=== PATIENT | male | born 2000 | race Caucasian/White ===

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

== ENCOUNTER 2023-01-24 15:55 | Emergency (ER) | payer MEDICAID ==
--- NOTE | 2023-01-24 16:56 | XRAY Report ---
PROCEDURE: Tib/Fib LT INDICATIONS: Trauma TECHNIQUE: 2 views of the tibia and fibula were acquired. COMPARISON: None. FINDINGS: Bones: No fractures or dislocations. No suspicious bony lesions. Soft tissues: No suspicious soft tissue calcifications or masses. IMPRESSION: No acute osseous amenities. If clinical symptoms persist, consider repeat examination or advanced kasandra ging such as CT or MRI. Reviewed by: Silvino Garvin MD on 01/24/2023 4:55 PM PDT Approved by: Silvino Garvin MD on 01/24/2023 4:55 PM PDT Station ID: [id number]
[2023-01-24] MEDS ORDERED: TETANUS/DIPHTHERIA/PERTUSSIS 0.5 ML SYRINGE IM ONE (16:59)
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
[2023-01-24 18:02] VITALS: BP 138/78
== END 2023-01-24 18:02 | disposition home or self-care (01) ==
LOC: ED 15:55
DX: S81.842A Puncture wound with foreign body, left lower leg, initial encounter (principal); X58.XXXA Exposure to other specified factors, initial encounter; Z23 Encounter for immunization; Z71.85 Encounter for immunization safety counseling
CPT/HCPCS: 10120; 90471; 99283

== ENCOUNTER 2023-02-04 16:33 | Emergency (ER) | payer MEDICAID ==
[2023-02-04 16:45] VITALS: BP 152/69
--- NOTE | 2023-02-04 17:04 | ED Physician Documentation ---
PD HPI WOUND RECHECK - Stated complaint Stated Complaint: REMOVE STITCHES - Chief complaint Chief Complaint: General - Histroy obtained from History obtained from: Patient - History of Present Illness Location: Left Lower Extremity (calf area) Timing - onset: How many days ago (10) Associated symptoms: No: Fever, Redness, Swelling, Drainage Recently seen: Emergency Dept (seen for leg laceration 10 days ago and it is healing well. Here for suture removal.) Review of Systems Constitutional: denies: Fever, Chills Neurologic: denies: Focal weakness, Numbness PD PAST MEDICAL HISTORY - Past Medical History Past Medical History: Yes Cardiovascular: None Respiratory: None Neuro: None Endocrine/Autoimmune: None Psych: ADD/ADHD - Past Surgical History Past Surgical History: No - Allergies Allergies/Adverse Reactions: Allergies Allergy/AdvReac Type Severity Reaction Status Date / Time amoxicillin Allergy Unknown Verified 02/04/23 16:45 - Social History Does the pt smoke?: No Smoking Status: Never smoker Does the pt drink ETOH?: No Does the pt have substance abuse?: No - Immunizations Immunizations are current?: Yes - POLST Patient has POLST: No PD ED PE NORMAL - Vitals Vital signs reviewed: Yes - General General: Alert and oriented X 3, No acute distress, Well developed/nourished - Extremities Extremities: Other (left calf with healing laceration without signs of infection. Sutures intact.) Results - Vitals Vitals: Vital Signs - 24 hr 02/04/23 16:44 Temperature 37 C Heart Rate 72 Respiratory 14 Rate Blood Pressure 152/69 H O2 Saturation 97 Oxygen O2 Source Room air Procedures - Suture/staple Removal (location) - Minor left calf Suture/staple removal: # sutures (3), No complications PD Medical Decision Making - ED course Complexity details: considered differential (healing wound. No signs of infection. Sutures removed with scalpel and forceps. Steri strips applied to cover it. ), d/w patient Departure - Departure Disposition: 01 Home, Self Care Clinical Impression: Visit for suture removal Condition: Stable Record reviewed to determine appropriate education?: Yes Instructions: ED Wound Check Sutr Remove No Infec Comments: Your wound appears good without any signs of infection. The sutures came out without any problems. I did place some Steri-Strips on there to just cover it as the wound closes over still. Otherwise regular activity showering etc. Discharge Date/Time: 02/04/23 17:40
== END 2023-02-04 17:40 | disposition home or self-care (01) ==
LOC: ED 16:33
DX: Z48.02 Encounter for removal of sutures (principal); S81.812D Laceration without foreign body, left lower leg, subsequent encounter; X58.XXXD Exposure to other specified factors, subsequent encounter
CPT/HCPCS: 99281; 99282

== ENCOUNTER 2023-07-08 15:26 | Outpatient (CLI) | payer MEDICAID ==
[2023-07-11 18:08] LABS: CHLAMYDIA TRACHOMATIS DNA NEGATIVE (NEGATIVE); NEISSERIA GONORRHOEAE DNA NEGATIVE (NEGATIVE); TRICHOMONAS VAGINALIS DNA NEGATIVE (NEGATIVE)
== END 2023-07-08 23:59 | disposition home or self-care (01) ==
LOC: LAB.N 15:26
PROVIDERS: ATTEND Nurse Practitioner Acute Care
DX: Z11.3 Encounter for screening for infections with a predominantly sexual mode of transmission (principal)
CPT/HCPCS: 87491; 87591; 87661

== ENCOUNTER 2024-04-19 11:45 | Emergency (ER) | payer MEDICAID, OTHER ==
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
[2024-04-19 12:06] VITALS: BP 152/90; O2SAT 99
[2024-04-19] MEDS ORDERED: LIDOCAINE 1%-EPI 1:100000 10 ML MDV SUBQ STA (12:17)
[2024-04-19] MEDS: LIDOCAINE 1%-EPI 1:100000 20 ML MDV SUBQ STA (12:27)
--- NOTE | 2024-04-19 13:04 | XRAY Report ---
PROCEDURE: Hand 3+V LT INDICATIONS: hand inj TECHNIQUE: 3 views of the hand(s) acquired. COMPARISON: None. FINDINGS: Bones: Fracture of the distal neck of the fifth metacarpal. No other fractures or dislocations. Ther e is slight angulation. No suspicious bony lesions. Soft tissues: No suspicious soft tissue calcifications or masses. IMPRESSION: Boxer's fracture, fifth metacarpal. Reviewed by: Austin Marshall MD on 04/19/2024 1:03 PM PDT Approved by: Austin Marshall MD on 04/19/2024 1:03 PM PDT Station ID: [id number]
== END 2024-04-19 12:56 | disposition home or self-care (01) ==
LOC: ED 11:45
DX: S62.337A Displaced fracture of neck of fifth metacarpal bone, left hand, initial encounter for closed fracture (principal); W22.8XXA Striking against or struck by other objects, initial encounter
CPT/HCPCS: 26605; 99284

== ENCOUNTER 2024-05-11 12:47 | Outpatient (CLI) | payer OTHER ==
--- NOTE | 2024-05-11 18:19 | XRAY Report ---
PROCEDURE: Hand 3+V LT INDICATIONS: FX METACARPAL TECHNIQUE: 3 views of the hand(s) acquired. COMPARISON: 04/19/2024. FINDINGS: Bones: Interval healing at patient's known comminuted fifth metacarpal neck fracture site with surro unding callus formation. Slight dorsal angulation of fracture site is again seen not significantly ch anged from prior study.. No suspicious bony lesions. Soft tissues: No suspicious soft tissue calcifications or masses. IMPRESSION: Interval healing at patient's known boxer type fracture site at fifth metacarpal neck. No new fractur e or dislocation. Stable left hand alignment. Reviewed by: Aroldo Isbell MD on 05/11/2024 6:18 PM PDT Approved by: Aroldo Isbell MD on 05/11/2024 6:18 PM PDT Station ID: [id number]
== END 2024-05-11 12:48 | disposition home or self-care (01) ==
LOC: DI 12:47
PROVIDERS: ATTEND Physician Assistant Surgical
DX: S62.337D Displaced fracture of neck of fifth metacarpal bone, left hand, subsequent encounter for fracture with routine healing (principal)

== ENCOUNTER 2024-08-25 09:55 | Inpatient (IN) ==
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
[2024-08-25] MEDS: LORazepam 2 MG/ML VIAL IVP STA (10:37)
[2024-08-25 10:42] LABS: BASOPHILS # (AUTO) 0.1 10^3/uL (0.0-0.1); BASOPHILS % (AUTO) 0.7 %; EOSINOPHILS # (AUTO) 0.4 10^3/uL (0.0-0.7); EOSINOPHILS % (AUTO) 3.1 %; HCT - HEMATOCRIT 53.8 % (42.0-52.0); HGB - HEMOGLOBIN 17.1 g/dL (14.0-18.0); LYMPHOCYTES # (AUTO) 4.3 10^3/uL (1.5-3.5); LYMPHOCYTES % (AUTO) 32.6 %; MEAN CORPUSCULAR HEMOGLOBIN 30.8 pg (27.0-31.0); MEAN CORPUSCULAR HGB CONC 31.8 g/dL (32.0-36.0); MEAN CORPUSCULAR VOLUME 96.8 fL (80.0-94.0); MEAN PLATELET VOLUME 9.6 fL (7.4-11.4); MONOCYTES # (AUTO) 1.2 10^3/uL (0.0-1.0); MONOCYTES % (AUTO) 8.9 %; NEUTROPHILS # (AUTO) 7.1 10^3/uL (1.5-6.6); PLT - PLATELET COUNT 348 10^3/uL (130-450); RED BLOOD COUNT 5.56 10^6/uL (4.70-6.10); RED CELL DISTRIBUTION WIDTH 11.7 % (12.0-15.0); WHITE BLOOD COUNT 13.1 x10^3/uL (4.8-10.8)
[2024-08-25] MEDS: SODIUM CHLORIDE 0.9% 1,000 ML IV STA (10:49)
[2024-08-25] MEDS: levETIRAcetam 500 MG/5 ML VIAL IVP STA (10:53)
[2024-08-25 11:05] LABS: CK- CREATINE KINASE 105 IU/L (30-223); ETOH - ETHANOL < 10.0 mg/dL; LIPASE 14 U/L (11-82)
[2024-08-25 11:13] LABS: ACETAMINOPHEN < 0.1 ug/mL; SALICYLATE < 1.5 mg/dL
[2024-08-25 11:14] LABS: ALBUMIN 5.6 g/dL (3.2-5.5); ALBUMIN/GLOBULIN RATIO 1.8 (1.0-2.2); ALKALINE PHOSPHATASE 72 IU/L (42-121); ALT ALANINE AMINOTRANSFERASE 87 IU/L (10-60); AST ASPARTATE AMINOTRANSFERASE 61 IU/L (10-42); BUN - BLOOD UREA NITROGEN 12 mg/dL (6-20); CALCIUM 10.6 mg/dL (8.5-10.3); CHLORIDE 100 mmol/L (101-111); GFR - MDRD 93 (>89); GLUCOSE 140 mg/dL (74-104); POTASSIUM 3.7 mmol/L (3.5-4.5); SODIUM 140 mmol/L (135-145); TOTAL PROTEIN 8.8 g/dL (6.4-8.9)
[2024-08-25 11:15] LABS: CARBON DIOXIDE - CO2 12 mmol/L (21-32)
[2024-08-25 11:17] LABS: THYROID STIMULATING HORMONE 4.19 uIU/mL (0.34-5.60)
[2024-08-25] MEDS: diltiaZEM INJ 5 MG/ML VIAL IVP STA ×2 (12:03→14:38)
[2024-08-25] MEDS: SODIUM CHLORIDE 0.9% 1,000 ML IV ONE (12:09)
--- NOTE | 2024-08-25 13:06 | CT Report ---
PROCEDURE: CT Head WO INDICATIONS: new seizures TECHNIQUE: Noncontrast 4.5 mm thick angled axial sections acquired from the foramen magnum to the vertex. For r adiation dose reduction, the following was used: automated exposure control, adjustment of mA and/or kV according to patient size. COMPARISON: None. FINDINGS: Image quality: There is streak artifact seen through the skull base. CSF spaces: Basal cisterns are patent. No extra-axial fluid collections. Ventricles are normal in size and shape. Brain: No midline shift. No intracranial masses or hemorrhage. Salguero-white matter interface is norm al. Skull and face: Calvarium and visualized facial bones are intact, without suspicious lesions. Sinuses: Visualized sinuses and mastoids are clear. IMPRESSION: No acute intracranial pathology. To the limits of this noncontrast study, no findings of masses or mass effect can be seen. Reviewed by: Buddy Schmidt MD on 08/25/2024 12:04 PM DAVID Approved by: Buddy Schmidt MD on 08/25/2024 12:04 PM DAVID Station ID: [id number]
--- NOTE | 2024-08-25 14:33 | HISTORY & PHYSICAL EXAMINATION ---
Chief Complaint <Emilio Black - Last Filed: 08/25/24 15:27> Chief Complaint Chief Complaint: Alcohol use disorder with related seizure and new onset atrial fibrillation History of Present Illness <Emilio Black - Last Filed: 08/25/24 15:27> Admitted From Admitted From:: ED History Obtained From Records Reviewed: ED History obtained from: Patient, patient's mother, and ED note History of Present Illness HPI Comment/Other: A 24-year-old male with a history of alcohol abuse presents for admission following an alcohol-related seizure accompanied by atrial fibrillation. His roommates witnessed an active seizure earlier today, after which they moved him to bed and called EMS. He experienced three seizures in total, two of which occurred in the emergency department. The patient reports a daily consumption of approximately 6-8 twelve-ounce beers, occasionally increasing to as many as 30. Prior to the seizure, he woke up, drank some water, and then opened a new beer, after which he has no recollection until EMS revived him. His mother notes that he had a history of febrile seizures as a child. Before the seizure in the ED, he experienced migraine-like symptoms and blackout, which his mother also observed. Mother says he was post-ictal for 15 minutes after. The patient describes waking up with tremors and a strong craving for alcohol. He also admits to smoking tobacco and marijuana. He denies any chest pain, shortness of breath, abdominal pain, fevers, or recent illness. Meds/Allgy <Emilio Black - Last Filed: 08/25/24 15:27> Home Medications Ambulatory Orders Medication Instructions Recorded Confirmed ibuprofen 200 mg tablet (Advil) 200 mg PO PRN PRN fever or pain 08/25/24 08/25/24 Allergies Allergies Allergy/AdvReac Type Severity Reaction Status Date / Time amoxicillin Allergy Unknown Verified 08/25/24 10:05 PFSH <Emilio Black - Last Filed: 08/25/24 15:27> Medical History Medical History (Updated 08/25/24 @ 15:31 by Jayson Can DNP) Alcohol use disorder Social History Social History (Updated 08/25/24 @ 10:14 by Tobi Gracia, RN, BSN) Smoking Status: Never smoker Living arrangement: At home Marital Status: Single Living Condition: With family and With friend(s) Relationship: Physical Activity: Running Do you feel safe in your home environment?: Yes Suffered physical, verbal, emotional, or financial abuse?: No History of Abuse: No ETOH Use: Beer Frequency: Daily Number of Amount/day: 6 Substance Use: cannabis (any form) and other Substance Use Details: psilocybin POLST Patient has POLST: No Review of Systems <Emilio Sofia - Last Filed: 08/25/24 15:27> Constitutional Denies: Fever or Chills Eyes Denies: Change in vision or Light sensitivity Ears, nose, mouth, and throat Denies: Hearing loss, Vertigo or Throat swelling Cardiovascular Reports: Irregular heart rate; Denies: chest pain, Syncope, shortness of breath with exertion or shortness of breath when lying down Respiratory Denies: Shortness of breath, SOB at rest or SOB with exertion Gastrointestinal Reports: Vomiting; Denies: Abdominal pain Genitourinary Denies: Painful urination Musculoskeletal Denies: Back pain Integumentary/Breast Denies: Rash Neurological Reports: Headache and Seizure-like activity; Denies: Vertigo Endocrine Denies: Excessive urination Hematologic/Lymphatic Denies: Anemia Allergic/Immunologic Denies: Throat swelling or Facial swelling Exam <Emilio Sofia - Last Filed: 08/25/24 15:27> Constitutional normal general appearance HENMT normocephalic Eyes PERRL, EOMs intact bilaterally, conjunctivae normal and no scleral icterus Neck/C-Spine visual inspection normal Lymph no lymphadenopathy noted Chest inspection of chest normal Respiratory breath sounds equal bilaterally, normal respiratory effort, clear to auscultation bilaterally, no wheezes, no rales, no retractions and no use of accessory muscles Cardiovascular heart rate abnormal other (irregularly irregular ) Gastrointestinal abdomen normal to inspection, abdomen soft to palpation and nontender to palpation Back/Pelvis spine normal to inspection, no thoracic spine tenderness, no lumbar spine tenderness, thoracic spine ROM normal and lumbar spine ROM normal Extremities normal to inspection, normal to palpation, no tenderness and full ROM 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 remembers everything up until first seizure at home. Psychiatry mental status grossly normal, oriented x3, thought process normal, cooperative and affect normal Skin skin color normal and no jaundice Conclusion/Plan <Emilio Black - Last Filed: 08/25/24 15:27> Problem List (1) Alcohol related seizure: Plan: Likely alcohol-related, exacerbated by withdrawal; potential history of febrile seizures may suggest a predisposition. Lorazepam for seizure prophylaxis and to manage alcohol withdrawal symptoms. Monitor vital signs closely; assess for signs of worsening withdrawal or seizures. (2) Atrial fibrillation with rapid ventricular response: Plan: Likely secondary to alcohol intoxication and withdrawal; consider the role of electrolyte imbalances. Lovanox 40 mg subq for anticoagulation therapy TSH ordered and echocardiogram for further evaluation. (3) Alcohol use disorder: Plan: Initiate a standardized alcohol withdrawal protocol [facility] for assessment and treatment. Librium 25 mg PO for alcohol withdraw symptoms. Banana bag IV given for electrolyte resupplementation . Thiamine supplementation 100 mg PO to prevent Wernicke's encephalopathy. (4) Elevated LFTs: (5) High anion gap metabolic acidosis: Lab Results Lab results reviewed: Yes 08/25/24 10:35 08/25/24 10:35 Diagnostic Imaging Results Diagnostic Imaging Results: positive Final report reviewed EKG Results EKG Interpreted Independently: No <Jayson Can DNP - Last Filed: 08/25/24 15:36> Problem List (1) Alcohol related seizure: Plan: Likely alcohol-related, exacerbated by withdrawal; potential history of febrile seizures may suggest a predisposition. Lorazepam for seizure prophylaxis and to manage alcohol withdrawal symptoms. Monitor vital signs closely; assess for signs of worsening withdrawal or seizures. Last drink 10 AM on 08/24/2024 Reports that he usually has to have 1-2 beers when he first wakes up to deal with shakes Scheduled Librium Will check chest x-ray to rule out aspiration (2) Atrial fibrillation with rapid ventricular response: Plan: Likely secondary to alcohol intoxication and withdrawal; consider the role of electrolyte imbalances. TSH ordered and echocardiogram for further evaluation. [id number] score 0, will hold off on anticoagulation As needed metoprolol IV 5 mg every 6 (3) Alcohol use disorder: (4) Elevated LFTs: Plan: Likely related to alcohol abuse Will recheck LFTs in a.m. after thorough fluid resuscitation (5) High anion gap metabolic acidosis: Plan: This is likely caused either by lactic acidosis in setting of seizures or alcoholic ketosis Will check lactate, UA BMP in a.m. Diagnostic Imaging Results Diagnostic Imaging Results Comments: CT head no acute abnormalities Core Measures <Jayson Can, ADENIKE - Last Filed: 08/25/24 15:36> Anticipated LOS I expect patient to be DC'd or transferred within 96 hours.: Yes DVT/VTE - Prophylaxis VTE/DVT Device ordered at admit?: No VTE/DVT Prophylaxis med ordered at admit?: Yes
[2024-08-25] MEDS ORDERED: SODIUM CHLORIDE FLUSH 0.9% 10 ML SYRINGE IVP PRN (15:11)
[2024-08-25] MEDS ORDERED: ACETAMINOPHEN 325 MG TABLET PO PRN (15:11)
[2024-08-25] MEDS ORDERED: METOPROLOL 5 MG/5 ML VIAL IVP PRN (15:34)
[2024-08-25 15:36] LABS: PT - PROTHROMBIN TIME 11.3 secs (9.9-12.6)
[2024-08-25 15:39] LABS: ALBUMIN 4.6 g/dL (3.2-5.5); ALBUMIN/GLOBULIN RATIO 1.8 (1.0-2.2); BILIRUBIN,TOTAL 0.9 mg/dL (0.2-1.0); CALCIUM 9.3 mg/dL (8.5-10.3); CREATININE 0.8 mg/dL (0.6-1.3); PHOSPHORUS 2.9 mg/dL (2.5-5.0); TOTAL PROTEIN 7.1 g/dL (6.4-8.9)
--- NOTE | 2024-08-25 15:53 | PHARMACY PROGRESS NOTE ---
Best Possible Medication History Admit Date and Time: 08/25/24 1400 Processed by: Pharmacy (Medication reconciliation completed by compounding pharmacy technician) Medications reviewed in ED?: No Medication History completed: Yes Patient Interview: Completed Secondary Source(s): Insurance records [facility] Statement: As the person ultimately responsible for medication therapy, providers are able to order a medication from an existing home medication list in [facility] via the "Reconcile Routine" prior to Confirmation of that medication by director decision support. Such practice is discouraged except when the physician, in their clinical judgment, deems that a medical need exists for a medication without regard to previous use.
[2024-08-25] MEDS: MULTIVITAMIN 10 ML, THIAMINE INJ 100 MG, FOLIC ACID INJ 1 MG in SODIUM CHLORIDE 0.9% 1,... IV SCH (16:39)
[2024-08-25] MEDS: chlordiazePOXIDE 25 MG CAPSULE PO SCH (16:40)
[2024-08-25] MEDS: IBUPROFEN 400 MG TABLET PO PRN (16:40)
[2024-08-25] MEDS: SODIUM CHLORIDE FLUSH 0.9% 10 ML SYRINGE IVP SCH (16:48)
[2024-08-25 17:01] LABS: BILIRUBIN,URINE NEGATIVE (NEGATIVE); GLUCOSE, URINE (UA) NEGATIVE (NEGATIVE); KETONES,URINE (UA) 15 mg/dL (NEGATIVE); LEUKOCYTE ESTERASE, URINE NEGATIVE (NEGATIVE); NITRITE,URINE NEGATIVE (NEGATIVE); OCCULT BLOOD,URINE TRACE-INTA (NEGATIVE); PH,URINE 5.5 PH (5.0-7.5); PROTEIN,URINE TRACE mg/dL (NEGATIVE); UROBILINOGEN,URINE 0.2 (NORMAL) E.U./dL (NORMAL)
[2024-08-25 17:07] LABS: CLARITY,URINE CLEAR (CLEAR)
[2024-08-25 17:12] LABS: AMPHETAMINE SCREEN,URINE NEGATIVE (NEGATIVE); BARBITURATE SCREEN,UR NEGATIVE (NEGATIVE); BENZODIAZEPINES SCREEN, URINE POSITIVE (NEGATIVE); BUPRENORPHINE SCREEN, URINE NEGATIVE (NEGATIVE); COCAINE SCREEN URINE NEGATIVE (NEGATIVE); METHADONE SCREEN, URINE NEGATIVE (NEGATIVE); METHAMPHETAMINES SCREEN, URINE NEGATIVE (NEGATIVE); OPIATE SCREEN, URINE NEGATIVE (NEGATIVE); OXYCODONE SCREEN, URINE NEGATIVE (NEGATIVE); THC CANNABINOID SCREEN, URINE POSITIVE (NEGATIVE); TRICYCLIC ANTIDEPRESSANT,URINE NEGATIVE (NEGATIVE)
[2024-08-26] MEDS: LORazepam 2 MG/ML VIAL IVP PRN (02:36)
[2024-08-26 02:45] VITALS: O2SAT 98
[2024-08-26 05:51] LABS: BASOPHILS # (AUTO) 0.1 10^3/uL (0.0-0.1); EOSINOPHILS # (AUTO) 0.3 10^3/uL (0.0-0.7); EOSINOPHILS % (AUTO) 4.4 %; HCT - HEMATOCRIT 45.2 % (42.0-52.0); HGB - HEMOGLOBIN 15.1 g/dL (14.0-18.0); LYMPHOCYTES # (AUTO) 2.1 10^3/uL (1.5-3.5); LYMPHOCYTES % (AUTO) 33.8 %; MEAN CORPUSCULAR HEMOGLOBIN 31.1 pg (27.0-31.0); MEAN CORPUSCULAR HGB CONC 33.4 g/dL (32.0-36.0); MEAN PLATELET VOLUME 9.4 fL (7.4-11.4); MONOCYTES # (AUTO) 0.7 10^3/uL (0.0-1.0); MONOCYTES % (AUTO) 10.6 %; NEUTROPHILS # (AUTO) 3.1 10^3/uL (1.5-6.6); NEUTROPHILS % (AUTO) 49.9 %; PLT - PLATELET COUNT 237 10^3/uL (130-450); RED BLOOD COUNT 4.86 10^6/uL (4.70-6.10); RED CELL DISTRIBUTION WIDTH 11.6 % (12.0-15.0); WHITE BLOOD COUNT 6.1 x10^3/uL (4.8-10.8)
[2024-08-26 06:02] LABS: CALCIUM 9.6 mg/dL (8.5-10.3); CREATININE 0.9 mg/dL (0.6-1.3); POTASSIUM 3.7 mmol/L (3.5-4.5)
[2024-08-26 06:31] LABS: THYROID STIMULATING HORMONE 4.92 uIU/mL (0.34-5.60)
[2024-08-26] MEDS: PRENATAL VITAMIN TABLET PO SCH (08:43)
[2024-08-26] MEDS: THIAMINE 100 MG TABLET PO SCH (08:43)
[2024-08-26] MEDS: ENOXAPARIN 40 MG/0.4 ML SYRINGE SUBQ SCH (08:44)
--- NOTE | 2024-08-26 11:47 | Discharge Summary ---
"<Statement entered by Jayson Can DNP - 08/26/24 12:57> Patient was seen and examined by me with a separate encounter after being seen by [facility] student. I reviewed the student's documentation including patient history, physical examination, laboratory, imaging, clinical assessment and treatment plan. I have discussed the management of the patient with the student, and with the patient. There are no changes. Discharge Summary Admit Date: 08/25/24 Discharge Date: 08/26/24 Discharging Provider: Jayson Can APRN Primary Care Provider: Linda Welch Code Status: Attempt Resuscitation DIAGNOSES Admission Diagnoses: Alcohol withdrawal seizure, high anion gap acidosis, atrial fibrillation with RVR, elevated LFTs Discharge Diagnoses with Status of Each Condition: Alcohol withdrawal seizure: Resolved high anion gap acidosis: Resolved atrial fibrillation with RVR: Resolved elevated LFTs: active alcohol dependence: chronic HPI History of Present Illness: A 24-year-old male with a history of alcohol abuse presented for admission following an alcohol-related seizure accompanied by atrial fibrillation. His roommates witnessed an active seizure yesterday, after which they moved him to bed and called EMS. He experienced three seizures in total, two of which occurred in the emergency department yesterday. The patient reports a daily consumption of approximately 6-8 twelve-ounce beers, occasionally increasing to as many as 30. Prior to the seizure, he woke up, drank some water, and then opened a new beer, after which he has no recollection until EMS revived him. His mother notes that he had a history of febrile seizures as a child. Before the seizure in the ED, he experienced migraine-like symptoms and blackout, which his mother also observed. Mother says he was post-ictal for 15 minutes after. The patient describes waking up with tremors and a strong craving for alcohol. He also admits to smoking tobacco and marijuana. He denies any chest pain, shortness of breath, abdominal pain, fevers, or recent illness. His mother states that his father had a history of alcohol use disorder, polysubstance use, and was found due to overdose. The patient states he does not want any alcohol counseling or resources to aid rehabilitation. Also, he says he does not plan on drinking with moderation and just wants to drink beer and chill. CONSULTS | PROCEDURES Consultations: Social work Procedures: Consulted social work for patient's options for rehabilitation or resources for alcohol cessation. HOSPITAL COURSE Hospital Course: Admitted for seizures related to alcohol withdrawal, the patient received a fluid bolus along with vitamin supplementation and Librium for associated tremors. Today, lab levels are normal, tremors have resolved, and it has been 48 hours since the last drink with no seizures reported since admission. The patient converted from atrial fibrillation to sinus rhythm overnight. Overall, the issues are considered secondary to alcohol use; counseling was provided, and the patient is deemed safe for discharge. ALLERGIES Allergies Allergy/AdvReac Type Severity Reaction Status Date / Time amoxicillin Allergy Unknown Verified 08/25/24 10:05 MEDICATIONS Ambulatory Orders Medication Instructions Recorded Confirmed ibuprofen 200 mg tablet (Advil) 200 mg PO QID PRN fever or pain 08/25/24 08/25/24 PHYSICAL EXAM AT DISCHARGE General Appearance: positive No acute distress and Alert Eyes Bilateral: positive Normal inspection, PERRL and EOMI ENT: positive ENT inspection nml Neck: positive Nml inspection Respiratory: positive Chest non-tender, No respiratory distress and Breath sounds nml Cardiovascular: positive Regular rate & rhythm, No murmur and No gallop Peripheral Pulses: positive 2+ Abdomen: positive Non-tender Back: positive Nml inspection Skin: positive Color nml and No rash Extremities: positive Non-tender, Full ROM and Nml appearance Neurologic/Psychiatric: positive Oriented x3, CN's nml (2-12), Motor nml, Sensation nml and Mood/affect nml LABS 08/26/24 05:35 08/26/24 05:35 DIAGNOSTIC IMAGING Diagnostic Imaging Results: Final report reviewed Discharge Plan Discharge Patient Disposition: 01 Home, Self Care Condition: Stable Medically Cleared Date:: 08/26/24 Prescriptions: Continued ibuprofen [Advil] 200 mg tablet 200 mg PO QID PRN (Reason: fever or pain) Activity Restrictions: No Restrictions Activity Restrictions/Additional Instructions: Alcohol cessation Diet: Regular Health Concerns: You are a 24-year-old male who came in after having a seizure at home. You had more seizures while on the way to the hospital, and in the ER.This is likely because of your history of alcohol dependence. While in the ER, you were noted to be in a heart rhythm called atrial fibrillation with rapid ventricular response. You were admitted for your seizures and for your heart rhythm. While in the hospital, you received fluid resuscitation through your IV, and medicines to keep you calm while withdrawing off of alcohol. Overnight, your heart rhythm went back into a normal rhythm. I would like for you to follow-up with your primary care physician regarding your episode of atrial fibrillation. They may wish to send you for was called an echocardiogram, or a ultrasound of your heart. Given the spontaneous resolution of your heart rhythm, I am inclined to believe that this is due to your alcohol use. I would strongly suggest that you cut back on your alcohol consumption, I would prefer her that you stop drinking altogether as you have now had seizures and heart rhythm problems because of your drinking. Your liver function was mildly impaired when you presented to the ER. This is likely a combination of alcohol intoxication and dehydration causing this. Follow-up with your primary care provider regarding this Care Plan Goals: Follow-up with PCP Cut back on alcohol use Report to the ER with any new seizures or heart palpitations Print Language: Upper Sorbian Patient Instructions: Alcoholism, Alcoholism Myths Facts, Alcoholism Impact, Alcoholism Info Family Friends, Alcoholism Get Help, Addiction Alcohol Stand Alone Forms: PCP List Follow-up Care: Linda Welch ARNP [Provider Admit Priv/Credential] -"
== END 2024-08-26 13:12 | disposition home or self-care (01) | DRG 897 ==
LOC: EDBD → ED 09:55 → MS2 14:05
PROVIDERS: ADMIT Nurse Practitioner Acute Care; ATTEND Nurse Practitioner Acute Care
DX: F17.200 Nicotine dependence, unspecified, uncomplicated; F10.239 Alcohol dependence with withdrawal, unspecified; G40.509 Epileptic seizures related to external causes, not intractable, without status epilepticus; E87.20 Acidosis, unspecified; R79.89 Other specified abnormal findings of blood chemistry; I48.91 Unspecified atrial fibrillation